=== PATIENT | female | born 2005 | race Asian ===

== ENCOUNTER 2024-03-21 19:53 | Emergency (ER) | payer OTHER ==
[~2024-03-21] VITALS: Ht 149.9 cm; Wt 47.0 kg
[2024-03-21 20:00] VITALS: BP 113/60; PULSE 80; RESP 16; TEMP 97.6
[2024-03-21] MEDS: SODIUM CHLORIDE 0.9% 250 ML IRRIG SOLUTION BOTTLE IRRIG ONE (21:32)
[2024-03-21] MEDS: PERTUSS(ACELL),DIPH,TET/PF 0.5 ML SYRINGE [ADULT] IM. ONE (21:32)
[2024-03-21] MEDS ORDERED: AMOX1TAB16 PO (21:40)
== END 2024-03-21 22:01 | disposition home or self-care (01) ==
LOC: EMS 19:53
DX: S51.852A Open bite of left forearm, initial encounter (principal); S51.851A Open bite of right forearm, initial encounter; W54.0XXA Bitten by dog, initial encounter; Y93.89 Activity, other specified; Y92.89 Other specified places as the place of occurrence of the external cause; Y99.8 Other external cause status
CPT/HCPCS: 90471; 90715; 99283